=== PATIENT | male | born 1980 | race Caucasian/White ===

== ENCOUNTER 2016-07-06 09:39 | Emergency (ER) | payer OTHER ==
[2016-07-06 10:14] VITALS: BP 123/81; PULSE 56; RESP 16; TEMP 98.1; O2SAT 97
--- NOTE | 2016-07-06 10:41 | UCPHY ---
H & P Time Seen by Provider: 07/06/16 10:02 Patient Type: New HPI/ROS: HPI Left knee injury. 35-year-old male by private vehicle. History of [place]-Schlatter disease left knee. Reports that he fell 4 days ago flush onto the proximal surface of his anterior tibia. He reports he was able to ambulate without significant difficulty immediately after the fall. He presents with worsening pain and swelling to the anterior inferior aspect of the left knee. No other injury or complaint. ROS: Constitutional: No fever, no chills. No weakness. Musculoskeletal: No back pain. No neck pain. As above. Denies other extremity pain. Skin: No rashes. Neurological: No headache. No focal weakness or altered sensation. Past medical history: As above. Social history: Here by himself. Nonsmoker. Physical Exam: General Appearance: Alert, no distress. This patient is responding to questions appropriately and in full sentences. This patient appears well- hydrated and well-nourished. Eyes: Pupils equal and round no pallor or injection. No lid edema, erythema or injection. Left knee exam: Significant for isolated swelling and tenderness on palpation over the left tibial tuberosity. There is no significant tenderness on palpation of the patella. The knee joint is stable to valgus and varus stress testing as well as anterior posterior drawer testing. He has pain with flexion of the left knee. He is able to lift his left lower extremity in extension off the gurney. Patellar tendon rupture unlikely. Left lower extremity is neurovascularly intact. Neurological: Motor sensory function is grossly intact. Cranial nerves are normal. Skin: Warm and dry, no rashes. Extremities are symmetrical except as above. All joints range without pain or impingement except as above. Database: EKG: Imaging: Left knee x-ray series: Significant for a likely chronic fracture/avulsion of the tibial tubercle. Otherwise negative. Interpreted by me. Procedures: Emergency department course: Patient sent for x-rays from triage of his left knee. After my evaluation he was placed in a left knee immobilizer. Plan will be to have him follow up with Orthopedics for re-evaluation and further management. He is in agreement. He feels comfortable going home. Ibuprofen dosing discussed. I will also prescribe him Vicodin for further pain control. Follow-up and return to Urgent Care precautions reviewed with him. All of his questions were answered. He was discharged in good condition. Differential Diagnosis: The differential diagnosis on this patient includes but is not limited to proximal tibial contusion, tibial tuberosity avulsion fracture, gerri slatter disease. Patellar tendon rupture, acute fracture unlikely. This represents a partial list of diagnoses considered. These considerations are based on history , physical exam, past history, reassessment and diagnostic testing. Smoking Status: Never smoked Constitutional: Initial Vital Signs Temperature (C) 36.7 C 07/06/16 10:00 Heart Rate 56 L 07/06/16 10:00 Respiratory Rate 16 07/06/16 10:00 Blood Pressure 123/81 H 07/06/16 10:00 O2 Sat (%) 97 07/06/16 10:00 O2 Delivery Mode Room Air Allergies/Adverse Reactions: No Known Allergies Allergy (Unverified 01/30/10 21:59) Home Medications: Medication Instructions Recorded Hydrocodone/APAP 5/325 [[place] 1 - 2 tab PO Q4-6PRN PRN #10 tab 07/06/16 5/325 (*)] Departure - Departure Disposition: Home, Routine, Self-Care Clinical Impression: [place]-Schlatter/osteochondroses, Contusion of left tibia Condition: Good Instructions: Gerri-Schlatter Disease (ED), Knee Pain (ED) Additional Instructions: Read and follow provided instructions. Follow-up with Orthopedics in the next 2-3 days for re-evaluation and further management. Keep your left leg in the brace until follow-up with Orthopedics. Weight-bearing as tolerated on your left leg. Take medication as prescribed. Ibuprofen dosin mg every 6 hours with meals for the next 3 days only. [place]/Percocet dosin-2 every 4-[address] for [address] not drive on this medication. Return to the emergency department for worsening pain, swelling, discoloration or other serious concerns. Referrals: Danial Aguayo MD [Medical Doctor] - As per Instructions Prescriptions: Hydrocodone/APAP 5/325 [[place] 5/325 (*)] 1 - 2 tab PO Q4-6PRN PRN #10 tab PRN Reason: Pain, Moderate - PQRS PQRS Measurement: Not applicable.
--- NOTE | 2016-07-06 10:50 | DX ---
Left Knee, Four Views Indication: Fall on ice. Technique: AP, obliques and lateral views. Comparison: None Findings: The normally mineralized bones are anatomically aligned. No acute fracture or effusion. A 1 .5 x 0.7 cm well-corticated ossicle at the tibial tuberosity has mild overlying soft tissue swelling. Impression: 1. No acute fracture or effusion. 2. Sequela of old [place]-Schlatter disease. Pretibial soft tissue swelling may be due to direct traum a with soft tissue swelling or chronic inflammation at the tibial tuberosity.
== END 2016-07-06 11:01 | disposition home or self-care (01) ==
LOC: CED 09:39
PROC: 2W3MX1Z Immobilization of Left Lower Extremity using Splint (ICD-10-PCS; principal; 2016-07-06)
DX: S80.12XA Contusion of left lower leg, initial encounter (principal); M92.52 Juvenile osteochondrosis of tibia tubercle; W19.XXXA Unspecified fall, initial encounter
CPT/HCPCS: 73564-PO; 99203-PO; G0463-PO; L1830